=== PATIENT | female | born 2000 | race African-American/Black ===

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

== ENCOUNTER 2019-05-31 10:28 | Emergency (ER) | payer OTHER, SELFPAY ==
[2019-05-31] MEDS ORDERED: Ondansetron ODT 4 MG TAB ONE (10:43)
[2019-05-31] MEDS ORDERED: Hyoscyamine Sulfate SL 0.125 mg Tablet ONE (10:43)
== END 2019-05-31 10:48 | disposition home or self-care (01) ==
LOC: BURERS 10:28
DX: R11.2 Nausea with vomiting, unspecified (principal)
CPT/HCPCS: 99283; Q0162

== ENCOUNTER 2020-07-12 09:53 | Emergency (ER) | payer SELFPAY ==
[2020-07-12] MEDS ORDERED: Ondansetron ODT 4 MG TAB ONE (10:50)
[2020-07-12 11:17] LABS: Bilirubin Negative (Negative); Blood, Urine Large (Negative); Clarity Slightly Cloudy (Clear); Glucose, Urine (Dipstick) Negative (Negative); Ketone, Urine Negative (Negative); Leukocyte Small (Negative); Nitrite Negative (Negative); Protein, Urine (Dipstick) Negative (Neg-Trace); Urobilinogen 0.2 mg/dL (Less than 2)
[2020-07-12 11:20] LABS: Pregnancy Test - Urine (BHCG) Negative (Negative); Pregu Control Background? CLEAR/WHITE (CLR/WHITE); Pregu Control Bar Appear? YES (CONTROL BAR)
[2020-07-12 11:22] LABS: Bacteria/HPF 2+ HPF (None Seen); Mucous/LPF 1+ LPF (<2+); Squamous Epithelial 0-3 HPF (0-3)
== END 2020-07-12 11:48 | disposition home or self-care (01) ==
LOC: BURERS 09:53
DX: N39.0 Urinary tract infection, site not specified (principal); R19.7 Diarrhea, unspecified; R11.2 Nausea with vomiting, unspecified
CPT/HCPCS: 81003; 81015; 81025; 87077; 87086; 99284; Q0162

== ENCOUNTER 2021-08-07 14:38 | Emergency (ER) | payer MEDICAID, SELFPAY | END 2021-08-07 15:10 | disposition home or self-care (01) | LOC: BURERS 14:38 | DX: J06.9 Acute upper respiratory infection, unspecified (principal); B97.4 Respiratory syncytial virus as the cause of diseases classified elsewhere | CPT/HCPCS: 99283 ==

== ENCOUNTER 2022-11-12 20:02 | Emergency (ER) | payer OTHER, SELFPAY ==
[2022-11-12 20:37] LABS: #Basophils 0.1 thou/uL (0.0-0.2); #Eosinphils 0.4 thou/uL (0.0-0.7); #Lymphocytes 1.9 thou/uL (1.20-3.40); #Monocytes 0.6 thou/uL (0.11-0.59); #Neutrophils 3.3 thou/uL (1.40-6.50); %Basophils 1.4 % (0.0-1.0); %Eosinophils 6.5 % (0.0-10.0); %Lymphocytes 29.9 % (21.0-51.0); %Monocytes 9.3 % (0.0-10.0); %Neutrophils 52.8 % (42.0-75.0); Hemoglobin 13.4 g/dL (12.0-16.0); Mean Corpuscular HGB CONC 32.8 g/dL (32.0-36.0); Mean Corpuscular Hemoglobin 30.2 pg (27.0-31.0); Mean Platelet Volume 7.3 fL (7.4-10.4); Platelet Count 274 10x3/uL (130-400); RBC Distribution Width 11.9 % (11.5-14.5); Red Blood Cell (RBC) Count 4.44 mill/uL (4.20-5.40); White Blood Cell (WBC) Count 6.2 10x3/uL (4.8-10.8)
[2022-11-12 20:52] LABS: Bilirubin Negative (Negative); Blood, Urine Negative (Negative); Clarity Clear (Clear); Glucose, Urine (Dipstick) Negative (Negative); Ketone, Urine Trace mg/dL (Negative); Leukocyte Negative (Negative); Nitrite Negative (Negative); Protein, Urine (Dipstick) Negative (Neg-Trace); Specific Gravity, Urine 1.025 (1.005-1.030)
[2022-11-12 20:53] LABS: Pregnancy Test - Urine (BHCG) Negative (Negative); Pregu Control Background? CLEAR/WHITE (CLR/WHITE); Pregu Control Bar Appear? YES (CONTROL BAR); Specific Gravity 1.025 (1.002-1.036)
[2022-11-12 21:00] LABS: Amphetamine Not Detected (NotDetected); Barbiturates Screen Not Detected (NotDetected); Benzodiazepine Screen Not Detected (NotDetected); Cocaine Metabolite Screen Not Detected (NotDetected); Medtox Control Line Valid? VALID (VALID); Methadone Not Detected (NotDetected); Methamphetamine Not Detected (NotDetected); Opiate Screen Not Detected (NotDetected); Oxycodone Screen Not Detected (NotDetected); Phencyclidine (PCP) Not Detected (NotDetected); THC/Cannabinoid Screen Not Detected (NotDetected); Tricyclic Screen Not Detected (NotDetected)
[2022-11-12 21:02] LABS: ALT (SGPT) 33 U/L (8-55); AST (SGOT) 19 U/L (5-34); Alkaline Phosphatase 66 U/L (40-110); Anion Gap 12 mmol/L (10-20); BUN (Urea Nitrogen) 12 mg/dL (7.0-18.7); Bilirubin, Total 0.3 mg/dL (0.2-1.2); CK (CPK) 120 U/L (29-168); Calc. Creatinine Clearance 0 mL/min (70-130); Calcium 8.4 mg/dL (7.8-10.44); Carbon Dioxide 26 mmol/L (22-29); Chloride 109 mmol/L (98-107); Estimated GFR 104; Globulin 2.4 g/dL (2.4-3.5); Glucose 62 mg/dL (70-105); Lipase 21 U/L (8-78); Magnesium 1.8 mg/dL (1.6-2.6); Potassium 3.5 mmol/L (3.5-5.1); Protein, Total 6.4 g/dL (6.0-8.3); Sodium 143 mmol/L (136-145)
[2022-11-12 21:17] LABS: SARS-CoV-2 NAA Rapid Test Not Detected (NotDetected)
== END 2022-11-12 21:39 | disposition home or self-care (01) ==
LOC: BURERS 20:02
DX: A08.4 Viral intestinal infection, unspecified (principal); E86.0 Dehydration; Z20.822 Contact with and (suspected) exposure to COVID-19; F17.210 Nicotine dependence, cigarettes, uncomplicated
CPT/HCPCS: 36415; 74022; 80053; 80306; 81003; 81025; 82550; 83690; 83735; 84484; 85025

== ENCOUNTER 2022-12-03 16:58 | Emergency (ER) | payer OTHER ==
[2022-12-03] MEDS ORDERED: Dexamethasone 4 mg/ml Vial ONE (17:16)
== END 2022-12-03 17:25 | disposition home or self-care (01) ==
LOC: BURERS 16:58
DX: J02.9 Acute pharyngitis, unspecified (principal); F17.210 Nicotine dependence, cigarettes, uncomplicated
CPT/HCPCS: 99282; J1100

== ENCOUNTER 2023-01-09 23:57 | Emergency (ER) | payer OTHER | END 2023-01-10 01:00 | disposition home or self-care (01) | LOC: BURERS 23:57 | DX: B34.9 Viral infection, unspecified (principal); F17.210 Nicotine dependence, cigarettes, uncomplicated | CPT/HCPCS: 87804; 99283 ==

== ENCOUNTER 2023-11-25 08:43 | Emergency (ER) | payer OTHER ==
[2023-11-25] MEDS ORDERED: Ondansetron ODT 4 MG TAB ONE (09:41)
== END 2023-11-25 09:49 | disposition home or self-care (01) ==
LOC: BURERS 08:43
DX: J10.1 Influenza due to other identified influenza virus with other respiratory manifestations (principal); F17.210 Nicotine dependence, cigarettes, uncomplicated
CPT/HCPCS: 87804; 99283; Q0162

== ENCOUNTER 2024-01-06 12:39 | Emergency (ER) | payer OTHER | END 2024-01-06 13:19 | disposition home or self-care (01) | LOC: BURERS 12:39 | DX: A08.4 Viral intestinal infection, unspecified (principal); F17.210 Nicotine dependence, cigarettes, uncomplicated | CPT/HCPCS: 99283 ==

== ENCOUNTER 2024-04-28 20:44 | Emergency (ER) | payer OTHER ==
[2024-04-28] MEDS ORDERED: Ondansetron ODT 4 MG TAB ONE (20:53)
[2024-04-28] MEDS ORDERED: Ondansetron PF 4 MG/2 ML Vial ONE (21:05)
[2024-04-28 21:20] LABS: Bilirubin Small (Negative); Blood, Urine Small (Negative); Clarity Clear (Clear); Glucose, Urine (Dipstick) Negative (Negative); Ketone, Urine 40 mg/dL (Negative); Leukocyte Negative (Negative); Nitrite Negative (Negative); Protein, Urine (Dipstick) 30 mg/dL (Neg-Trace)
[2024-04-28 21:23] LABS: Pregnancy Test - Urine (BHCG) Negative (Negative); Pregu Control Background? CLEAR/WHITE (CLR/WHITE); Pregu Control Bar Appear? YES (CONTROL BAR); Specific Gravity 1.037 (1.002-1.036); Specific Gravity, Urine 1.037 (1.002-1.036)
[2024-04-28 21:30] LABS: Amphetamine Not Detected (NotDetected); Bacteria/HPF 1+ HPF (None Seen); Barbiturates Screen Not Detected (NotDetected); Benzodiazepine Screen Not Detected (NotDetected); CAUTI Indications for Culture Fever or rigors; Cocaine Metabolite Screen Not Detected (NotDetected); Methadone Not Detected (NotDetected); Methamphetamine Not Detected (NotDetected); Mucous/LPF 1+ LPF (<2+); Opiate Screen Not Detected (NotDetected); Oxycodone Screen Not Detected (NotDetected); Phencyclidine (PCP) Not Detected (NotDetected); Squamous Epithelial 0-3 HPF (0-3); THC/Cannabinoid Screen Not Detected (NotDetected); Transitional Epithelial 0-3 HPF (None Seen); Tricyclic Screen Not Detected (NotDetected); WBC/HPF 0-3 HPF (0-3)
[2024-04-28 21:31] LABS: Urine Culture Reflex No No
== END 2024-04-28 22:14 | disposition home or self-care (01) ==
LOC: BURERS 20:44
DX: E86.0 Dehydration (principal); R11.2 Nausea with vomiting, unspecified; F17.290 Nicotine dependence, other tobacco product, uncomplicated
CPT/HCPCS: 80306; 81001; 81025; 99284; J2405; Q0162

== ENCOUNTER 2024-05-25 22:55 | Emergency (ER) | payer OTHER | END 2024-05-25 23:43 | disposition home or self-care (01) | LOC: BURERS 22:55 | DX: N92.0 Excessive and frequent menstruation with regular cycle (principal); F17.290 Nicotine dependence, other tobacco product, uncomplicated | CPT/HCPCS: 99283 ==

== ENCOUNTER 2025-08-04 08:57 | Emergency (ER) | payer OTHER | END 2025-08-04 09:35 | disposition home or self-care (01) | LOC: BURERS 08:57 | DX: K52.9 Noninfective gastroenteritis and colitis, unspecified (principal); F17.210 Nicotine dependence, cigarettes, uncomplicated | CPT/HCPCS: 99283 ==